=== PATIENT | male | born 1990 | race Caucasian/White ===

== ENCOUNTER → 2021-02-13 15:03 | Outpatient (CLI) | payer OTHER, SELFPAY | PROVIDERS: PCP Family Medicine; Visit Provider Nurse Practitioner | DX: Z20.822 Contact with and (suspected) exposure to COVID-19 (principal); U07.1 COVID-19 | CPT/HCPCS: C9803; U0003; U0005 ==

== ENCOUNTER 2023-05-27 23:17 | Emergency (ER) | payer OTHER, SELFPAY ==
--- NOTE | 2023-05-27 23:32 | HMH.EDGENADL ---
Discharge Plan Disposition Patient Disposition: Home, Self-Care Condition: Good Prescriptions Prescriptions: New sulfamethoxazole-trimethoprim [Bactrim DS] 800-160 mg tablet 1 tab PO BID 7 Days Qty: 14 0RF mupirocin 2 % ointment 1 applic topical TID 7 Days Qty: 22 0RF levofloxacin 750 mg tablet 750 mg PO DAILY 7 Days Qty: 7 0RF No Action lisinopril 10 mg tablet 10 mg PO DAILY colchicine 0.6 MG tablet 0.6 mg PO DIRECTED Qty: 3 0RF Rx Instructions: Take 2 tablets (1.2mg) now followed by 1 tablet (0.6mg) 1 hour later Referrals Follow up/Referrals: Provider,Referral, MD [Primary Care Provider] - See instructions Activity Restrictions/Add. Instructions Additional Instructions/Restrictions: You were evaluated in the ER today for concerns of right arm redness and lesions after tattoo. You have findings of infection and folliculitis. You have been provided an ointment. Use this 2-3 times daily when your skin is clean and dry. Also take the prescribed oral antibiotics as directed. Do not skip doses, do not stop taking these early. All of your medication should be used for at least 7 days. Continue following regular post tattoo care as directed by the artist. Make an appointment with your primary care physician for reevaluation. Return to the ER with new, worsening, or otherwise concerning symptoms. Clinical Impressions Clinical Impression: Folliculitis Cellulitis Qualifiers: Site of cellulitis: extremity Site of cellulitis of extremity: upper extremity Laterality: right Qualified Code(s): L03.113 - Cellulitis of right upper limb Instructions Patient Instructions: DI for Skin Abscess Discharge ED Provider: Alexis Abbott General Adult HPI General Chief complaint: Skin/Abscess/Foreign Body Stated complaint: Right arm rash, blistering Time Seen by Provider: 05/27/23 23:20 History of Present Illness HPI narrative: This 32-year-old male with a reported history of hypertension not currently on any daily antihypertensives presents to the ER with concerns of rash developing in his right arm since having a tattoo done on Saturday (48 hours ago). Patient states in the last 24 hours he has developed redness, pain, heat, and small pustules in the distal part of his right forearm and part of the tattoo. Patient states he has an allergy to adhesive and has been using SaniDerm which is a clear protective layer over the tattoo as recommended by the tattoo parlor. Patient states he does not think it had adhesive and it but is not sure. He states he did take an allergy pill earlier today without improvement of symptoms, he states it actually worsened since that time. Patient has not been having fever. He denies any radiation of pain proximally into the upper arm or distally into the hand. He states he had a childhood reaction to penicillins, no other known drug allergies. Patient states he has tried Aquaphor cream, has been using Dove sensitive skin soap as well. Related Data Home Medications Medication Instructions Recorded Confirmed lisinopril 10 mg tablet 10 mg PO DAILY 12/14/19 12/14/19 Previous Rx's Medication Instructions Recorded colchicine 0.6 mg tablet 0.6 mg PO DIRECTED #3 tabs 06/30/19 mupirocin 2 % topical ointment 1 applic topical TID 7 days #22 05/27/23 grams sulfamethoxazole 800 1 tab PO BID 7 days #14 tabs 05/27/23 mg-trimethoprim 160 mg tablet (Bactrim DS) levofloxacin 750 mg tablet 750 mg PO DAILY 7 days #7 tabs 05/28/23 Allergies Allergy/AdvReac Type Severity Reaction Status Date / Time Penicillins Allergy Verified 07/28/20 12:54 [facility] Disclaimer: The information contained in this section may have been updated after the patient was seen, as this information can be updated by other users. Social History Smoking Status: Unknown if ever smoked alcohol intake: current substance use type: denies use current occupational status: other Travel in the last 8 weeks: None ROS Obtained: Yes All systems reviewed & no additional complaints except as documented Constitutional Constitutional: Denies chills, Denies fever(s), Denies headache(s) and Denies weakness Eyes Eyes: Denies change in vision ENT Ears, Nose, Mouth, and Throat: Denies dizziness, Denies headache(s), Denies nasal congestion and Denies sore throat Cardiovascular Cardiovascular: Denies chest pain, Denies dyspnea and Denies leg edema Respiratory Respiratory: Denies cough and Denies dyspnea Gastrointestinal Gastrointestingal: Denies constipation, diarrhea, nausea or vomiting Genitourinary Male Genitourinary: Denies difficulty urinating Musculoskeletal Musculoskeletal: Denies arthralgias, Denies myalgias, Denies numbness and Denies tingling Integumentary/Breasts Skin/Breast: Denies change in pigmentation, Reports changing lesions, Reports redness, Reports new lesions and Reports rash Neurologic Neurologic: Denies dizziness, Denies headache(s), Denies numbness, Denies tingling and Denies weakness Physical Exam General General appearance: alert and in no apparent distress Head Head exam: atraumatic and normocephalic Eye Eye exam: Present PERRL and EOMI ENT ENT exam: Present mucous membranes moist Neck Neck exam: Present normal inspection and full ROM Chest Chest inspection: Present symmetric chest wall rise Respiratory Respiratory exam: Absent respiratory distress or stridor Cardiovascular Cardiovascular exam: Present regular rate and normal rhythm Abdominal Exam Abdominal exam: Present soft; Absent distention or tenderness Extremities Exam Extremities exam: Present full ROM and other (Lesions in the right forearm as documented in skin exam. Patient has full strength of the arm, no tenderness or swelling radiating away from the area of rash/lesions, neurovascularly intact throughout) Neurological Exam Neurological exam: Present alert and oriented X3; Absent motor sensory deficit Psychiatric Psychiatric exam: Present normal affect and normal mood Skin Skin exam: Present warm, dry, rash, erythema and other (Circumferential erythema, heat, tenderness in the distal 5 inches of the forearm overlying fresh tattoo. There are innumerable punctate vesicles with purulent contents. No draining or open wounds at this time) Medical Decision Making Genaro Inquiry Pt receiving controlled substance: No Vital Signs: 05/27/23 23:35 Temperature 98.4 F Temperature Source Oral Pulse Rate [Right Radial] 97 H Respiratory Rate 18 Blood Pressure [Left Arm] 160/112 H Blood Pressure Mean [Left Arm] 128 Blood Pressure Source [Left Arm] Automatic Cuff Blood Pressure Position [Left Arm] Sitting 02 Sat by Pulse Oximetry 98 Oxygen Delivery Method Room Air Orders (Tests/Meds): ED MEDICATIONS Discontinued Medications Generic Name Dose Route Start Last Admin Trade Name Freq PRN Reason Stop Dose Admin Levofloxacin 750 mg 05/28/23 00:06 Levofloxacin 750 Mg Tablet PO 05/28/23 00:07 ONCE ONE Mupirocin 1 gm 05/28/23 09:00 Mupirocin 2% Ointment 22gm Tube TP 06/27/23 08:59 TID ASHLEY Mupirocin 0 gm 05/27/23 23:51 05/27/23 23:58 Mupirocin 2% Ointment 22gm Tube TP 05/27/23 23:52 4 gm ONCE ONE Administration Trimethoprim/Sulfamethoxazole 1 each 05/27/23 23:46 05/27/23 23:57 Sulfa/Trimethoprim 1 Tablet PO 05/27/23 23:47 1 each ONCE ONE Administration Medical Decision Narrative: In summary, this 32year old male presents to the emergency department today with right arm redness, swelling, numerous punctate vesicular/purulent lesions in a fresh tattoo. On initial evaluation patient is hemodynamically stable, afebrile, he has mild tenderness in the right forearm with erythema and lesions as described in physical exam without streaking up or down the arm, neurovascularly intact throughout, no findings of neurovascular compromise or other sites of infection. Differential diagnosis includes but is not limited to cellulitis, abscess, contact dermatitis, folliculitis. I considered NSTI, however patient does not have significant pain in the forearm and it has not been rapidly progressing. He is also not showing any systemic signs of illness. I do not believe patient requires any labs or imaging at this time. Based on my concerns and highest suspicion for infection, I ordered topical mupirocin and oral Bactrim and levofloxacin for one-time administration. I prescribed Bactrim and levofloxacin for outpatient management. Patient was provided with the mupirocin that was ordered in the ER and I prescribed this as well. He was given instructions on regular application of this as well as instructions for Bactrim and Levaquin administration. I gave him instructions on keeping the wound clean and dry, outpatient follow-up, and strict return precautions for the ER. He indicated understanding and the patient was discharged in stable condition. Critical Care Critical Care Time Critical Care Time: No
[2023-05-27 23:35] VITALS: BP 160/112; PULSE 97; RESP 18; TEMP 36.9; O2SAT 98; BMI 52.9
[2023-05-27] MEDS: SULFA/TRIMETHOPRIM 1 TABLET 1 EACH PO (23:57)
[2023-05-27] MEDS: MUPIROCIN 2% OINTMENT 22GM TUBE TP (23:58)
--- NOTE | 2023-05-28 00:08 | PC.NURSE ---
MD Abbott aware of BP
--- NOTE | 2023-05-28 00:11 | PC.NURSE ---
in room talking with patient at this time.
[2023-05-28] MEDS: levoFLOXacin 750 MG TABLET PO (00:13)
[2023-05-28 00:25] VITALS: BP 153/105; PULSE 86; RESP 19; TEMP 36.7; O2SAT 96
== END 2023-05-28 00:26 | disposition home or self-care (01) ==
PROVIDERS: Emergency Provider Emergency Medicine
DX: L03.113 Cellulitis of right upper limb (principal)
CPT/HCPCS: 99283